=== PATIENT | female | born 1955 | race Caucasian/White ===

== ENCOUNTER → 2020-03-30 | Outpatient (CLI) | payer MEDICARE ==
--- NOTE | 2020-03-31 12:17 | CT ---
Procedure: CT LUNG SCREENING Exam Date: March 30, 2020 Ordering Provider: Marilee Posadas Clinical Indication: PERSONAL HISTORY OF TOBACCO DEPENDENCE smoking cessation x12 years. 20 pack year history. This patient meets eligibility criteria for low-dose CT lung cancer screening. Comparison: None. Technique: Using a multislice scanner, sequential helical axial imaging was obtained in the thorax, 2.5 mm thickness, 2.5 mm separation, from the level of the thoracic inlet through the lung bases without IV contrast. A low dose protocol was utilized for BMI greater than 30: BMI: 44.1. CTDI: 2.93 mGy. 120. kVp. 75 mA. DLP 117 mGy-cm. 2D sagittal and coronal reconstructed images, 6.0 mm thickness, were obtained. This exam was performed according to our departmental dose optimization program which includes use of automated exposure control, adjustment of the mA and/or kV according to patient size and/or use of iterative reconstruction technique. Nodule measurements under 10 mm are given as mean value of 3 axes diameters. FINDINGS: Lungs and large airways: Small bilateral parenchymal blebs more prevalent in the upper lung crowley. Occasional septal thickening. Bibasilar pleural-parenchymal scarring. Similar scarring in the right middle lobe and inferior lingula. No consolidation. No abnormal nodule and no mass. Pleura and space: Minimal thickening but no acute process or calcifications. Mediastinum and sb: evaluation limited by low dose technique and lack of IV contrast. Small lymph nodes but no dominant soft tissue mass. Heart and great vessels: Coronary artery calcifications also in the descending thoracic aorta. Chest wall, lower neck, axillae: Evaluation also limited by same factors as described above. Normal size axillary lymph nodes. Upper abdomen: Evaluation limited by low-dose technique. Minimal atherosclerotic calcification. Normal size and density of adrenal glands and spleen. Small sliding hiatal hernia. Osseous structures: Evaluation limited by low dose MIP technique. Minimal thoracic spondylosis. Trace levoscoliosis. Minimal arthrosis in the shoulder cuauim-[id number]-[id number] joints. IMPRESSION: 1. Mild emphysematous changes in the upper lung crowley. No acute process. No abnormal nodule and no mass.. [facility] Best Practice Recommendations: please see below for Lung RADS category and FOLLOW-UP.* *Lung RADS category Category 1 - No nodule or definitely benign nodules (probability of malignancy less than 1%). Follow-up: Continue annual screening with Low Dose Chest CT in 12 months. Electronically signed by: Augustine Maldonado MD 03/31/2020 12:16 PM CDT
== END ==
LOC: CT 10:07
PROVIDERS: ATTEND Nurse Practitioner Family
DX: Z87.891 Personal history of nicotine dependence (principal); Z12.2 Encounter for screening for malignant neoplasm of respiratory organs; J43.9 Emphysema, unspecified

== ENCOUNTER → 2020-09-18 | Outpatient (CLI) | payer MEDICARE ==
--- NOTE | 2020-09-19 08:55 | CT ---
EXAM: Abdomen/Pelvis w/wo Contrast CLINICAL HISTORY: GROSS HEMATURIA COMPARISON STUDY: None TECHNICAL: Pre and post IV contrast images were performed through the abdomen and pelvis. Sagittal and coronal reconstructions were obtained. FINDINGS: The visible portion of the chest is negative. The heart is not enlarged. A small hiatal hernia is present. Noncontrast images show a tiny calcification within the left collecting system. There is no hydronephrosis of either kidney and no visible ureteral calculus. Postcontrast images show no renal abnormality. Delayed images show contrast excreted into nondilated collecting systems. The ureters are segmentally seen due to peristalsis and not dilated. The visible bladder is unremarkable. The liver, spleen, pancreas, adrenal glands, and kidneys enhance appropriately and demonstrate no acute abnormality. The gallbladder is intact and contains density differences suggestive of gallstones but there is no evidence of biliary dilatation. There is no bowel obstruction or free air. Moderate stool seen throughout the colon. There is no acute inflammatory process. The appendix is visible and normal. The aorta, IVC and retroperitoneum are negative. Structures within the pelvis are negative. Bilateral L5 spondylolysis results in 11 mm spondylolisthesis and severe degenerative disc changes. Bilateral foraminal stenosis is noted. IMPRESSION: 1. Solitary tiny left intrarenal calculus. No hydronephrosis, renal abnormality or visible bladder lesion to explain hematuria. 2. Cholelithiasis without CT evidence of cholecystitis. 3. Bilateral L5 spondylolysis, 11 mm of spondylolisthesis and severe degenerative changes at L5-S1. This exam was performed according to our departmental dose-optimization program, which includes automated exposure control, adjustment of the mA and/or kV according to patient size and/or use of iterative reconstruction technique. Electronically signed by: Benjamín Santos MD 09/19/2020 8:54 AM [employer] [employer]
== END ==
LOC: CT 14:22
PROVIDERS: ATTEND Urology
DX: Z01.812 Encounter for preprocedural laboratory examination (principal); N20.0 Calculus of kidney; R31.0 Gross hematuria; K80.20 Calculus of gallbladder without cholecystitis without obstruction; M47.896 Other spondylosis, lumbar region; M43.16 Spondylolisthesis, lumbar region; M51.37 Other intervertebral disc degeneration, lumbosacral region